=== PATIENT | female | born 1990 | race Caucasian/White ===

== ENCOUNTER → 2021-04-19 | Outpatient (CLI) | payer BC | LOC: EMI 08:38 | DX: G35 Multiple sclerosis (principal); E07.9 Disorder of thyroid, unspecified | CPT/HCPCS: 70551; 72141 ==

== ENCOUNTER → 2021-05-06 | Outpatient (CLI) | payer BC | LOC: US 13:21 | DX: R93.7 Abnormal findings on diagnostic imaging of other parts of musculoskeletal system (principal); E07.89 Other specified disorders of thyroid; E04.1 Nontoxic single thyroid nodule | CPT/HCPCS: 76536 ==

== ENCOUNTER → 2021-11-04 | Outpatient (CLI) | payer BC | LOC: US 10-29 13:30 | DX: E04.2 Nontoxic multinodular goiter (principal) | CPT/HCPCS: 76536 ==

== ENCOUNTER → 2022-04-18 | Outpatient (CLI) | payer BC ==
[2022-04-18 14:31] LABS: BUN/CREATININE RATIO 13 (0-10)
== END ==
LOC: EXRD 13:00 → US 13:00
PROVIDERS: Emergency Medicine
DX: E04.2 Nontoxic multinodular goiter (principal)
CPT/HCPCS: 36415; 76536; 80053; 84439; 84443